=== PATIENT | male | born 1990 | race Caucasian/White ===

== ENCOUNTER 2017-02-27 00:23 | Emergency (ER) | payer MEDICAID, SELFPAY ==
[2017-02-27 01:19] VITALS: BP 126/71; PULSE 85; RESP 16; TEMP 97.3; O2SAT 99
--- NOTE | 2017-02-27 01:48 | ED PDOC ---
Upper Extremity Pain/Injury Time Seen by Provider: 02/27/17 01:16 Chief Complaint (Nursing): Finger,Hand,&Wrist Chief Complaint (Provider): right hand 5th digit pain History Per: Patient History/Exam Limitations: no limitations Onset/Duration Of Symptoms: Days (1 month) Current Symptoms Are (Timing): Still Present Hands/Wrist (Pic): 1 - Tenderness, Swelling Additional History Per: Patient Additional Complaint(s): 26 y/o male presents with pain/swelling to right hand 5th digit x 1 month. Patient states he dislocated the finger playing basketball, had friend pop it back in to place. Patient notes persistent swelling to area since then, little relief with ice application. Denies numbness/weakness right hand upper extremity. Past Medical History Reviewed: Historical Data, Nursing Documentation, Vital Signs Vital Signs: Last Vital Signs Temp 97.3 F L 02/27/17 01:17 Pulse 85 02/27/17 01:17 Resp 16 02/27/17 01:17 BP 126/71 02/27/17 01:17 Pulse Ox 99 02/27/17 01:17 - Medical History PMH: No Chronic Diseases - Surgical History Surgical History: No Surg Hx - Family History Family History: States: Unknown Family Hx - Living Arrangements Living Arrangements: With Family - Allergies Allergies/Adverse Reactions: Allergies Allergy/AdvReac Type Severity Reaction Status Date / Time No Known Allergies Allergy Verified 10/30/14 20:04 Review of Systems ROS Statement: Except As Marked, All Systems Reviewed And Found Negative Musculoskeletal: Positive for: Hand Pain (right hand 5th digit) Physical Exam - Reviewed Nursing Documentation Reviewed: Yes Vital Signs Reviewed: Yes - Physical Exam Appears: Positive for: Well, Non-toxic, No Acute Distress Pulses-Radial (L): 2+ Pulses-Radial (R): 2+ Extremity: Positive for: Normal ROM, Swelling (right hand 5th digit PIP with swelling, tender to touch. Unable to fully flex at PIP joint. Distal NV, motor intact) - ECG O2 Sat by Pulse Oximetry: 99 - Other Rad xray right [id number] digit X-Ray: Viewed By Mt X-Ray Interpretation: + avulsion fx pip, ? healing proximal phalanx fx - Progress ED Course And Treament: xray Patient educated on findings, finger placed in splint. Advised follow up hand specialist. Ice, elevate, NSAIDs. Return to ED for worsening/concerning symptoms. Disposition - Clinical Impression Clinical Impression: Finger fracture Counseled Patient/Family Regarding: Studies Performed, Diagnosis, Need For Followup - Disposition Referrals: Annamarie Liu MD [Staff Provider] - Disposition: Routine/Home Disposition Time: 02:29 Condition: STABLE Instructions: Finger Fracture (ED)
--- NOTE | 2017-02-27 11:12 | RAD ---
PROCEDURE: Right small finger radiographs. HISTORY: pain/swelling s/p dislocation x 1 month COMPARISON: None. TECHNIQUE: AP radiograph of the right hand, as well as spot oblique and lateral images of small finger were obtained. FINDINGS: RIGHT SMALL FINGER: Current study reveals what appears represent a tiny avulsion fracture at the volar plate base middle phalanx right 5th finger with surrounding soft tissue swelling. . Note that the fracture line may extend into the joint space JOINTS: Normal. SOFT TISSUES: Normal. OTHER FINDINGS: None. IMPRESSION: Small avulsion fracture volar plate base middle phalanx right 5th finger. Note this report was placed in PA review folder followup
== END 2017-02-27 03:00 | disposition home or self-care (01) ==
LOC: H.ER 00:23
DX: S62.606A Fracture of unspecified phalanx of right little finger, initial encounter for closed fracture (principal); Y93.67 Activity, basketball

== ENCOUNTER 2017-04-15 04:33 | Emergency (ER) | payer MEDICAID ==
[2017-04-15 04:56] VITALS: BP 129/70; PULSE 52; RESP 16; TEMP 96.7; O2SAT 100
--- NOTE | 2017-04-15 05:31 | ED PDOC ---
HPI: General Adult Time Seen by Provider: 04/15/17 05:00 Chief Complaint (Nursing): Upper Extremity Problem/Injury Chief Complaint (Provider): Right sided neck pain x 2 days History Per: Patient History/Exam Limitations: no limitations Onset/Duration Of Symptoms: Days Have you had recent travel within the past 21 days to any of the following countries: [place], [place], [place] or [place]?: No Current Symptoms Are (Timing): Still Present Severity: Moderate Pain Scale Rating Of: 6 Recent Trauma: None Additional Complaint(s): Sharp with movement. Pt denies trauma. Pt did not take any medications for pain. Past Medical History Reviewed: Historical Data, Nursing Documentation, Vital Signs Vital Signs: Last Vital Signs Temp 96.7 F L 04/15/17 04:52 Pulse 52 L 04/15/17 04:52 Resp 16 04/15/17 04:52 BP 129/70 04/15/17 04:52 Pulse Ox 100 04/15/17 04:52 - Medical History PMH: No Chronic Diseases - Surgical History Surgical History: No Surg Hx - Family History Family History: States: Unknown Family Hx - Living Arrangements Living Arrangements: With Family - Social History Current smoker - smoking cessation education provided: No Alcohol: None Drugs: Denies - Home Medications Home Medications: Ambulatory Orders Medication Instructions Recorded Ibuprofen [Motrin Tab] 800 mg PO Q6H PRN #20 tab 04/15/17 diaZEpam [Valium] 5 mg PO Q6H PRN #15 tab 04/15/17 - Allergies Allergies/Adverse Reactions: Allergies Allergy/AdvReac Type Severity Reaction Status Date / Time No Known Allergies Allergy Verified 04/15/17 04:52 Review of Systems ROS Statement: Except As Marked, All Systems Reviewed And Found Negative Constitutional: Negative for: Fever, Chills Musculoskeletal: Positive for: Neck Pain, Shoulder Pain Physical Exam - Reviewed Nursing Documentation Reviewed: Yes Vital Signs Reviewed: Yes - Physical Exam Appears: Positive for: Well, Non-toxic, No Acute Distress Head Exam: Positive for: ATRAUMATIC, NORMAL INSPECTION, NORMOCEPHALIC Skin: Positive for: Normal Color, Warm, DRY Eye Exam: Positive for: Normal appearance ENT: Positive for: Normal ENT Inspection Neck: Positive for: Pain On Movement Of Neck, See Diagram (Tenderness of the trapezius). Negative for: Normal, Limited ROM (Right rotation) Cardiovascular/Chest: Positive for: Regular Rate, Rhythm Respiratory: Positive for: Normal Breath Sounds. Negative for: Accessory Muscle Use, Respiratory Distress Back: Positive for: Normal Inspection Extremity: Positive for: Normal ROM Neurologic/Psych: Positive for: Alert, Oriented - ECG O2 Sat by Pulse Oximetry: 100 Disposition - Clinical Impression Clinical Impression: Muscle spasm - Patient ED Disposition Is Patient to be Admitted: No Counseled Patient/Family Regarding: Diagnosis, Need For Followup, Rx Given - Disposition Disposition: Routine/Home Disposition Time: 05:30 Condition: GOOD Prescriptions: diaZEpam [Valium] 5 mg PO Q6H PRN #15 tab PRN Reason: Pain Ibuprofen [Motrin Tab] 800 mg PO Q6H PRN #20 tab PRN Reason: Pain Instructions: Muscle Spasm (ED)
== END 2017-04-15 06:16 | disposition home or self-care (01) ==
LOC: H.ER 04:33
DX: M62.838 Other muscle spasm (principal)
CPT/HCPCS: 96372; 99282; J1885